=== PATIENT | male | born 1955 | race Caucasian/White ===

== ENCOUNTER 2017-01-09 15:23 | Inpatient (IN) ==
--- NOTE | 2017-01-09 16:34 | PROVIDER DOCUMENTATION ---
HPI-General Adult - General Chief Complaint: Edema Stated Complaint: RT LEG SWELLING Time Seen by Provider: 01/09/17 15:39 Source: patient, family Allergies/Adverse Reactions: Patient Allergies Allergy/AdvReac Type Severity Reaction Status Date / Time No Known Allergies Allergy Verified 01/09/17 17:57 Home Medications: Home Medication List Medication Instructions Recorded Confirmed Last Taken Type Ascorbate Calcium [Vitamin C] 1 PO DAILY 01/10/17 Unknown History Aspirin 1 PO DAILY 01/10/17 Unknown History Calcium Carbonate [Tums] PO DIRECTED PRN PRN 01/10/17 Unknown History Cinnamon Bark [Cinnamon] 1,000 mg PO DAILY 01/10/17 01/10/17 Unknown History Echinacea 500 mg PO DAILY 01/10/17 01/10/17 Unknown History Glimepiride [Glimepiride] 2 PO QAM 01/10/17 Unknown History Glimepiride [Glimepiride] 2 PO QPM 01/10/17 Unknown History Hydrocodone/APAP 7.5 mg/325 mg 1 each PO Q8HR PRN 01/10/17 01/10/17 Unknown History [Rock-7.5] Ibuprofen 600 mg PO Q6H PRN 01/10/17 01/10/17 Unknown History Lisinopril [Lisinopril] 1 PO DAILY 01/10/17 Unknown History Lorazepam [Lorazepam] 1 PO QHS PRN 01/10/17 Unknown History Metformin HCl [Metformin HCl] 1 PO QPM 01/10/17 Unknown History Metformin HCl [Metformin HCl] 2 PO QAM 01/10/17 Unknown History Ranitidine HCl [Zantac] 1 PO QPM 01/10/17 Unknown History Ranitidine HCl [Zantac] 150 mg PO QAM 01/10/17 01/10/17 Unknown History Simvastatin [Simvastatin] 1 PO DAILY 01/10/17 Unknown History Vitamin E 1 PO DAILY 01/10/17 Unknown History - History of Present Illness -Gen Adult Nature of Presenting Problems: 61 y.o male PMH LLE DVT 6yrs ago, DM, HTN, [place] , anxiety who presents with LLE swelling since this AM. Pt denies any trauma or pain to the leg. He reports recently staying in bed or seating down following back pain for the past 2 weeks and diagnosis of [place] dx. He denies dyspnea, chest pain, palpitations- His however, reports taking his pulse early this week and believe it was fast and irregular. 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) Ears, Nose, Mouth & Throat: reports: no symptoms reported Cardiovascular: reports: no symptoms reported Respiratory: reports: no symptoms reported Gastrointestinal: reports: no symptoms reported Genitourinary: reports: no symptoms reported Musculoskeletal: reports: no symptoms reported Integumentary: reports: no symptoms reported Neurological: reports: no symptoms reported Psychiatric: reports: no symptoms reported Endocrine: reports: no symptoms reported Hematologic/Lymphatic: reports: no symptoms reported Allergic/Immunologic: reports: no symptoms reported All Other Systems: Reviewed and Negative Past History - Adult - PAST MEDICAL HISTORY-ADULT Review of Records: reports: Nursing Assessment Review, Medications Reviewed Major Childhood Illnesses: reports: denies history Cardiovascular: reports: denies history Physical Exam-General - PHYSICAL EXAM-ADULT Initial Vital Signs Reviewed: Yes - CONSTITUTIONAL General Appearance: appears well, alert, obese - EYES Eyes: PERRL/EOMI - HEAD, EARS, NOSE, MOUTH & THROAT HENMT: normocephalic/atraumatic, moist mucous membranes - NECK Neck: full range of motion, supple - RESPIRATORY Respiratory: lungs clear, normal breath sounds, no pleuratic chest pain, no respiratory distress, no accessory muscle use. negative: stridor, wheezing - CARDIOVASCULAR Cardiovascular: normal peripheral pulses, regular rate, rhythm, no gallop, no JVD - GASTROINTESTINAL (ABDOMEN) Abdominal Exam: normal bowel sounds, non tender, soft - MUSCULOSKELETAL Back Exam: decreased range of motion (of right knee due to pain), swelling ( right knee to foot- with mild tenderness upon palpation behind the knee. - findings above knee WNL) - SKIN Integumentary: normal color, normal turgor - NEUROLOGIC Neurologic: grossly normal - PSYCHIATRIC Psych/Mental Status: normal mood/affect, normal thought content, normal thought process, oriented x 3 Progress - PLAN OF CARE/RESULTS Progress/Plan/Lab Results: Vital Signs - 8 hr 01/09/17 15:30 Temperature 97.5 F L Pulse Rate 71 Respiratory Rate 20 Blood Pressure 143/65 O2 Sat by Pulse Oximetry 99 Result Diagrams: 01/10/17 06:25 01/10/17 06:25 - REASSESSMENT Reassessment #1 Time Reassessed: 17:20 Status: other (Received verbal from US tech significant DVT above and below knee. Pt does not want use " newer drugs". He is leaning toward restarting coumadin. Pt will be given lovenox full dose and hospitalist will be call for admission.- Again full doppler report pending) Departure - Departure Date of Disposition Decision: 01/09/17 Time of Disposition Decision: 19:30 (Spoke to Dr Gan for admission) DIAGNOSIS: DVT (deep venous thrombosis) Qualifiers: DVT location: lower extremity Chronicity: acute Laterality: right Disposition: ADMITTED INPATIENT 09 Certified Medical Emergency: Emergent Condition: Stable - Critical Care Note This patient required my direct & personal management of CC.: Yes Attestation - Physician/ LEOONRA Attestation Patient care was provided by Advanced Practice Provider:: No The physician spent face to face time with patient:: Yes Advanced Practice Provider documentation review:: Supervising physician onsite and consulted in the evaluation and care of this patient. The physician did have a face to face encounter with the patient.
[2017-01-09 17:00] LABS: MANUAL DIFF NEEDED? NO
[2017-01-09 17:02] LABS: BASO% 0.4 % (0.0-0.8); EOS# 0.12 X1000 (0.0-0.7); EOS% 1.2 % (0.0-10.0); HEMATOCRIT 44.4 % (42.0-52.0); HEMOGLOBIN 15.4 g/dL (14.0-18.0); IMM GRAN# 0.03 X1000 (0.0-0.04); IMM GRAN% 0.3 % (0.0-0.5); LYMPH# 2.19 X1000 (1.2-3.4); LYMPH% 22.8 % (20.5-51.1); MCHC 34.7 g/dL (33-37); MCV 86.5 FL (81-99); MONO# 0.69 X1000 (0.11-0.59); MONO% 7.2 % (1.7-9.3); MPV 10.6 FL (7.4-10.4); NEUT% 68.1 % (42.2-75.2); PLT 159 X1000 (130-400); RBC 5.13 XMIL (4.7-6.1)
[2017-01-09 17:21] LABS: INR 1.04; PROTIME 10.9 Seconds (9.2-11.7)
[2017-01-09] MEDS ORDERED: LOVENOX SUBQ ONE (17:30)
[2017-01-09 18:31] LABS: AGAP 15; ALBUMIN 4.6 g/dL (3.5-5.0); ALKALINE PHOSPHATASE 75 U/L (32-122); BUN 9 mg/dL (8-22); CALCIUM 9.2 mg/dL (8.8-10.2); CHLORIDE 103 mmol/L (98-107); COSMO 285; GOT 17 U/L (10-34); GPT 14 U/L (10-44); POTASSIUM 4.4 mmol/L (3.5-5.1); SODIUM 141 mmol/L (136-145); TCO2 23 mmol/L (25-35); TOTAL BILIRUBIN 0.31 mg/dL (0.20-1.00); TOTAL PROTEIN 6.6 g/dL (6.3-8.3)
[2017-01-09] MEDS ORDERED: ATIVAN IV ONE (19:44)
--- NOTE | 2017-01-09 21:00 | Diag Imaging Result Doc PS360 ---
EXAM: CT ANGIOGRM/PULMONARY ARTERIES INDICATION: significant RLE DVT- eval for PE TECHNIQUE: Dose reduction protocol was used. In addition to standard thin section CTA images, coronal and radial MIPS were obtained. COMPARISON: None. FINDINGS: There is no evidence of pulmonary embolism. There is trace atherosclerotic calcification at the aortic arch. There is no evidence of aortic aneurysm or dissection. There is patchy coronary artery atherosclerotic calcification. There is no evidence of significant mediastinal or hilar lymphadenopathy. The lungs are clear. There are no airspace consolidations appreciated. There is no pleural fluid collection and no pneumothorax. There are several thoracic ventral marginal osteophytes. IMPRESSION: 1.No evidence of pulmonary embolism or other definite acute chest pathology. 2.Other incidental/nonacute findings detailed above. Electronically signed by Zack Atkins 01/09/2017 8:57 PM
--- NOTE | 2017-01-09 21:39 | HISTORY AND PHYSICAL ---
PRIMARY CARE PHYSICIAN: Frances Geronimo MD CHIEF CONCERN: Right leg swelling and knee pain. HISTORY OF PRESENT ILLNESS: Mr. Hernandez is a 61-year-old male with past medical history of diabetes type 2, spinal stenosis, osteoarthritis and history of DVT in the left leg 6 years ago who comes to the hospital complaining of right leg swelling and pain behind the right knee. The patient states that in early September, the patient was diagnosed with [place] Spotted Fever after finding a tick on his skin. The patient was treated for 7 days with doxycycline. Since then, patient has been having worsening pain of osteoarthritis and increasing joint pain and therefore he has been more sedentary than usual. The patient states that earlier this morning, he started having more swelling in his right leg than usual and the pain in his back knee was familiar to his previous episode of DVT. Therefore, he came to the hospital. In the emergency room, an ultrasound was done. Official read is still pending. Per outside plant technician, there is a large DVT below and above the knee, and he was already started on Lovenox 1 mg/kg. Also in the emergency room, a pulmonary arteriogram was ordered to rule out DVT. There was no evidence of pulmonary embolism or acute chest pathology. The patient states he feels fairly well, except for a slight discomfort behind his right knee. PAST MEDICAL HISTORY: DVT in the left leg 6 years ago, diabetes type 2, spinal stenosis and osteoarthritis. PAST SURGICAL HISTORY: Epidurals for chronic neck pain. Lumbar laminectomy. Cholecystectomy. ALLERGIES: None. HOME MEDICATIONS: Reconciliation is still pending. SOCIAL HISTORY: Patient smokes 1 pack per day for the last 40 years. Stopped drinking alcohol many years ago. Denies using drugs. FAMILY HISTORY: Mother of a stroke. PHYSICAL EXAMINATION: VITAL SIGNS: Temperature 97.5 degrees, pulse 71, respirations 20, blood pressure 143/65, oxygen saturation 99% on room air. GENERAL: Patient is alert and oriented x3. No acute distress. HEENT: Head is normocephalic, atraumatic. Eyes, UCHE. Moist mucous membranes. NECK: Supple. PULMONARY: Well ventilated bilaterally. No wheezing, rales, or crackles. CARDIOVASCULAR: S1, S2. No rubs, murmurs, or gallops. ABDOMEN: Soft, nondistended, nontender. EXTREMITY: Left leg within normal limits. Right leg, pitting edema +1 from toes up to the knee. The patient does not have any calf tenderness and has slight discomfort on deep palpation behind the left knee. Full range of motion. NEUROLOGIC: Cranial nerves 2-12 grossly intact. No focal deficits. PSYCHIATRIC: Normal mood and affect. LABORATORIES: White blood cell count 9.6, hemoglobin 15.4, hematocrit 44, platelets 159,000. Sodium 141, potassium 4.4, BUN 9, creatinine 0.6. D-dimer positive at 0.96. Liver function tests within normal limits. IMAGING: As mentioned above, pulmonary arteriogram shows no evidence of pulmonary embolism. The official read for the Doppler ultrasound of the right leg is still pending. ASSESSMENT AND PLAN: 1. Deep venous thrombosis. The patient was already given 1 time dose of 1 mg/kg in the emergency room. Patient will be continued on the same dose every 12 hours. The patient states that for his 1st deep venous thrombosis which happened 6 years ago he was placed on warfarin. At this moment, he does not want to be placed on Xarelto or Eliquis since family members have been having issues with that medication and he is afraid of not having a reversal agent. The patient would like to be placed eventually on warfarin again. 2. Diabetes type 2. We will continue patient's home medications. 3. Spinal stenosis. We will continue patient's home medications for pain control. 4. Osteoarthritis. Chronic pain. We will continue patient's home medications. cc: Delicia aGn MD
--- NOTE | 2017-01-10 06:03 | EKG Report ---
Test Performed on : 01/09/2017 4:41:23 PM Test Reason : POSS DVT Blood Pressure : / mmHG Vent. Rate : 068 BPM Atrial Rate : 068 BPM P-R Int : 110 ms QRS Dur : 086 ms QT Int : 404 ms P-R-T Axes : -01 003 012 degrees QTc Int : 429 ms Sinus rhythm. with short TN Otherwise normal ECG When compared with ECG of 26-JUN-2010 17:02, No significant change was found Unconfirmed Result
[2017-01-10] MEDS: LOVENOX SUBQ SCH ×2 (06:21→15:21)
[2017-01-10 06:30] LABS: MANUAL DIFF NEEDED? NO
[2017-01-10 06:41] LABS: BASO% 0.4 % (0.0-0.8); EOS# 0.24 X1000 (0.0-0.7); EOS% 2.3 % (0.0-10.0); HEMATOCRIT 44.8 % (42.0-52.0); HEMOGLOBIN 15.5 g/dL (14.0-18.0); IMM GRAN# 0.02 X1000 (0.0-0.04); IMM GRAN% 0.2 % (0.0-0.5); LYMPH# 3.19 X1000 (1.2-3.4); LYMPH% 30.6 % (20.5-51.1); MCH 30.1 PG (27-31); MCHC 34.6 g/dL (33-37); MONO# 0.71 X1000 (0.11-0.59); MONO% 6.8 % (1.7-9.3); NEUT% 59.7 % (42.2-75.2); PLT 171 X1000 (130-400); RBC 5.15 XMIL (4.7-6.1)
[2017-01-10 06:58] LABS: AGAP 13; BUN 8 mg/dL (8-22); CALCIUM 9.4 mg/dL (8.8-10.2); CHLORIDE 103 mmol/L (98-107); COSMO 283; POTASSIUM 4.2 mmol/L (3.5-5.1); SODIUM 142 mmol/L (136-145); TCO2 26 mmol/L (25-35)
[2017-01-10 08:01] VITALS: BP 132/66
[2017-01-10] MEDS ORDERED: COUMADIN PO ONE (12:25)
--- NOTE | 2017-01-11 16:57 | Extremity Venous Study ---
PROCEDURE NAME: Venous U/S Right Leg - 01/09/2017 RIGHT LOWER EXTREMITY VENOUS STUDY: REQUESTING PHYSICIAN: Chas Bennett MD BUSINESS INSURANCE AGENT: Danita. INDICATION: Unilateral leg swelling. PROCEDURES: Right lower extremity venous duplex and color flow imaging. EQUIPMENT: [employer] Vivid E9 ultrasound System with a 9 LD transducer. FINDINGS: Images of the right lower extremity venous system with comparison shot of the left common femoral vein were obtained in both sagittal and transverse planes. Doppler was used to evaluate veins for spontaneity, phasicity, respiratory excursion, and digital augmentation. RESULTS: Acute clot noted in the popliteal vein extending into the mid thigh and the superficial femoral vein. Otherwise, normal study. INTERPRETATION: Acute DVT from the popliteal vein to the mid thigh femoral vein. Per the civil engineering technician's note, this was relayed to Dr. Bennett at 1720 on 01/09/2017. cc: Vipul Juárez MD
--- NOTE | 2017-01-12 08:11 | DISCHARGE SUMMARY ---
ADMISSION DATE: 01/09/2017 DISCHARGE DATE: 01/10/2017 CONSULTATIONS: None. PERTINENT PROCEDURES: 1. Pulmonary arteriogram showed no evidence of PE or definite acute chest pathology. 2. Ultrasound showed a large deep venous thrombosis below and above the knee on the right side. The patient refused treatment with Xarelto or Eliquis. He was initiated on full dose Lovenox and started on p.o. Coumadin and will follow up with Dr. Geronimo in 3 days for checking of his INR. 3. Diabetes mellitus, type 2. Continue home medications. 4. Spinal stenosis. Continue home medications for pain control. 5. Osteoarthritis. Continue medications for pain control. HOSPITAL COURSE: Mr. Hernandez is a 61-year-old male with past medical history of diabetes mellitus type 2, spinal stenosis, osteoarthritis, and history of DVT in the left leg 6 years ago. He came to the hospital complaining of right leg swelling and pain behind the right knee. The patient states in early September he was diagnosed with [place] Spotted Fever after finding a tick on his skin. He was treated with 7 days of doxycycline. Since then, the patient had been having worsening pain and osteoarthritis and increased joint pain and, therefore , he had been more sedentary than usual. The patient on the day of his admission started having more swelling in his right leg than usual and the pain in the back of his knee was familiar to his previous episode of DVT. He came to the hospital, and they did an ultrasound that was done. Official read was still pending, but per the instrumentation and control technician, there was a large DVT below and above the knee. He was started on full dose Lovenox in the ED. A pulmonary arteriogram was obtained and did not show any PE or acute chest pathology. Six years ago, he was placed on warfarin for his left DVT. Again, he did not want to be placed on Xarelto or Eliquis. He stated he has had family members who were having issues with that medication, and he was afraid of not having a reversal agent, so the patient was admitted and started on full dose Lovenox and p.o. warfarin. Dr. Moon has discharged the patient home and to follow up with Dr. Frances Geronimo in 3 days to check his INR. VITAL SIGNS: At time of discharge, temperature 98.7 degrees, heart rate 71, respirations 18, blood pressure 132/66, O2 is 99% on room air. DISCHARGE MEDICATIONS: 1. Vitamin C 500 mg 1 each p.o. daily. 2. Aspirin 81 mg p.o. daily. 3. Tums p.o. as directed. 4. Cinnamon 1000 mg p.o. daily. 5. Echinacea 500 mg p.o. daily. 6. Lovenox 110 mg subcutaneous q.12 hours. 7. Glyburide 2 mg p.o. q.a.m. 8. Glyburide 2 mg p.o. every evening. 9. [place] 7.5/325, 1 each p.o. q. 8 hours. 10. Lisinopril 5 mg p.o. daily. 11. Lorazepam 1 mg p.o. at bedtime p.r.n. 12. Metformin 500 mg p.o. q.a.m. 13. Metformin 500 mg p.o. every evening. 14. Zantac 150 mg p.o. q.a.m. 15. Zantac 150 mg p.o. every evening. 16. Simvastatin 10 mg p.o. daily. 17. Vitamin E 400 unit capsule p.o. daily. 18. Coumadin 500 mg p.o. daily. FOLLOWUP: Dr. He was discharged home with self-care. He has to take his Lovenox and Coumadin as instructed and follow up with his PCP, Dr. Frances Geronimo, in 3 days to recheck his INR. He has been given information on Coumadin as well as vitamin K foods and warfarin, and he has been educated on how or where to get his subcutaneous Lovenox injections. He can return to the ED for any worsening of symptoms. He has been educated on signs and symptoms of bleeding. He can return to the ED for any worsening of symptoms. Dictated by SKYE Chang for Ricardo Greenfield MD Addendum: Patient seen and examined by myself. Agree with SKYE note. It reflects my assessment and plan. He is being discharged in stable condition after observing him for 24 hours. He prefers to start Coumadin for management of DVD instead of newer anticoagulants like Xarelto. Pulmonary embolism has been ruled out. Follow up with PCP in 3 days for rechecking INR. cc: Frances Greenfield MD MTDD
== END 2017-01-10 18:09 | disposition home or self-care (01) ==
LOC: ED 15:23 → 3N 15:24
PROVIDERS: ATTEND Internal Medicine